=== PATIENT | male | born 1990 | race Caucasian/White ===

== ENCOUNTER → 2020-08-20 12:23 | Outpatient (CLI) | payer OTHER, SELFPAY ==
--- NOTE | ~2020-08-20 | MR_ITS ---
EXAMINATION: MR lumbar spine wo [id number] EXAM DATE: 08/20/2020 13:40 INDICATION: Low back pain. TECHNIQUE: Multi-sequential, multiplanar MR images of the lumbar spine were obtained without contrast . Sagittal T1, T2, T2 fat saturation images. Axial T2 weighted images. There is no prior study for comparison. FINDINGS: Rudimentary L5-S1 disc. Mild disc disease L4-5 and L5-S1. The vertebral body and disc heigh ts are otherwise well maintained. The vertebral bodies are aligned in the AP dimension. The conus med ullaris terminates at the L1/2 level and has normal signal intensity and morphology. There are no stephens spicious marrow signal abnormalities. Paraspinal soft tissue is unremarkable. Level by level evaluation: T12-L1: Disc does not extend beyond the endplate margin. Facet arthropathy: None. Neural foraminal stenosis: No stenosis. Central canal stenosis: No stenosis. L1-L2: Disc does not extend beyond the endplate margin. Facet arthropathy: Mild. Neural foraminal stenosis: No stenosis. Central canal stenosis: No stenosis. L2-L3: Disc does not extend beyond the endplate margin. Facet arthropathy: Mild. Neural foraminal stenosis: No stenosis. Central canal stenosis: No stenosis. L3-L4: There is a minimal diffuse disc bulge. Facet arthropathy: None. Neural foraminal stenosis: No stenosis. Central canal stenosis: No stenosis. L4-L5: There is a mild diffuse disc bulge. Facet arthropathy: Mild. Neural foraminal stenosis: Mild bilateral, left greater than right. Central canal stenosis: Mild. L5-S1: There is a mild diffuse disc bulge. Facet arthropathy: Mild. Neural foraminal stenosis: No stenosis. Central canal stenosis: No stenosis. IMPRESSION: 1. Mild lower lumbar spondylosis. 2. No acute findings. Reviewed, dictated and finalized at location A. E REPORT DEVELOPER
--- NOTE | ~2020-08-20 | MR_ITS ---
EXAMINATION: MR cervical spine wo con EXAM DATE: 08/20/2020 13:40 INDICATION: Neck pain . TECHNIQUE: Multi-sequential, multiplanar MR images of the cervical spine were obtained without contra st. Axial T2, axial T2 MERGE sequence. Sagittal T1, T2, T2 fat saturation images also obtained. Th ere are no prior studies for comparison. FINDINGS: The vertebral bodies are aligned in the AP dimension. Vertebral body and disc heights are well-maintained. There are no suspicious marrow signal abnormalities. The spinal cord signal intensit y and intrinsic morphology is normal. Cervicomedullary junction is normal in appearance. Paraspinal soft tissue is unremarkable. Level by level evaluation: C2-C3: Disc does not extend beyond the endplate margin. Uncovertebral joint arthropathy: None. Facet joint arthropathy: None. Neural foraminal stenosis: No stenosis. Central canal stenosis: No stenosis. C3-C4: Disc does not extend beyond the endplate margin. Uncovertebral joint arthropathy: None. Facet joint arthropathy: None. Neural foraminal stenosis: No stenosis. Central canal stenosis: No stenosis. C4-C5: Disc does not extend beyond the endplate margin. Uncovertebral joint arthropathy: Minimal bilateral. Facet joint arthropathy: Mild left. Neural foraminal stenosis: No stenosis. Central canal stenosis: No stenosis. C5-C6: Disc does not extend beyond the endplate margin. Uncovertebral joint arthropathy: Mild bilateral. Facet joint arthropathy: None. Neural foraminal stenosis: No stenosis. Central canal stenosis: No stenosis. C6-C7: Disc does not extend beyond the endplate margin. Uncovertebral joint arthropathy: Mild right. Facet joint arthropathy: None. Neural foraminal stenosis: No stenosis. Central canal stenosis: No stenosis. C7-T1: Disc does not extend beyond the endplate margin. Uncovertebral joint arthropathy: None. Facet joint arthropathy: None. Neural foraminal stenosis: No stenosis. Central canal stenosis: No stenosis. IMPRESSION: 1. Mild arthropathy. No stenosis. 2. No acute findings. Reviewed, dictated and finalized at location A. ER MAKER
== END ==
PROVIDERS: PCP Family Medicine; Visit Provider Family Medicine
DX: M54.2 Cervicalgia (principal); M47.26 Other spondylosis with radiculopathy, lumbar region
CPT/HCPCS: 72141; 72148

== ENCOUNTER 2021-06-21 08:33 | Emergency (ER) | payer OTHER, SELFPAY ==
[2021-06-21 08:44] VITALS: BP 150/88; PULSE 110; RESP 18; TEMP 36.5; O2SAT 98
[2021-06-21 08:51] VITALS: BP 158/104; PULSE 80; RESP 18; O2SAT 100
[2021-06-21] MEDS: KETOROLAC (*BKC) 60 MG/2 ML VIAL IM (09:23)
--- NOTE | 2021-06-21 09:25 | ED.BACK ---
HPI - Back Pain/Injury General Chief Complaint: Back Pain/Injury Stated Complaint: Lower back pain. Time Seen by Provider: 06/21/21 08:48 Source: patient and RN notes reviewed Mode of arrival: ambulatory Limitations: no limitations History of Present Illness HPI Narrative: This is a 30 year old male with history of chronic low back pain who presents for evaluation of left lower back pain. Patient states he was performing squats on mcclendon machine when he developed sudden onset pain. Patient was trying to stand up from his squats when pain started. He states his pain does not radiate to his legs or abdomen. His pain is worse with movement. He has not take anything for his pain since it started prior to arrival. He also denies leg weakness, numbness or tingling. He abdominal pain, nausea or vomiting. He denies urinary dysuria , retention or incontinence. He states this pain is similar to his chronic pain but it may be slightly worse today. He has had multiple MRIs and his last one was 6 months ago. He has been diagnosed with bulging disc. Related Data Allergies Allergy/AdvReac Type Severity Reaction Status Date / Time No Known Allergies Allergy Verified 06/21/21 08:51 Review of Systems Review of Systems: All systems reviewed & are unremarkable except as noted in HPI and below PMFSH Past Medical History Medical History (Updated 06/21/21 @ 10:31 by Anamika Mayers MD) Bulging disc Surgical History Surgical History (Updated 06/21/21 @ 09:29 by Anamika Mayers MD) No pertinent past surgical history Social History Social History (Updated 06/21/21 @ 09:29 by Anamika Mayers MD) Smoking status: Never smoker Exam Const: General: no acute distress and alert Orientation/consciousness: patient oriented x3 Eyes: EOM: EOMs intact bilaterally Resp: Effort & Inspection: normal respiratory effort and no retractions Auscultation: clear to auscultation bilaterally Cardio: Rate: regular rate Rhythm: regular rhythm Heart sounds: no murmurs GI: GI Palp: Yes Soft to palpation, No Tenderness to palpation present (GI) and No Guarding due to palpation present (GI) Auscultation: normal bowel sounds Back/Spine/Pelvis: Back: no CVA tenderness Thoracic/Lumbar Spine: pain with thoraco-lumbar ROM Skin: General skin exam: normal color Rashes: no rashes Neuro: General: patient oriented x3, moves all extremities and CN's II-XI intact bilaterally Course Reevaluation(s) Reevaluation #1: Patient is sitting up in bed. He still has some pain but he states he has been dealing with this for 10 years so he understands it will get better over time. He denies any other questions or concerns. Declines need for work note. Date: 06/21/21 Time: 10:29 Vital Signs Vital signs: Vital Signs Temperature 97.7 F 06/21/21 08:44 Pulse Rate 110 H 06/21/21 08:44 Respiratory Rate 18 06/21/21 08:44 Blood Pressure 150/88 H 06/21/21 08:44 Pulse Oximetry 98 06/21/21 08:44 Temperature 97.7 F 06/21/21 08:44 Pulse Rate 84 06/21/21 10:45 Respiratory Rate 16 06/21/21 10:45 Blood Pressure 136/79 06/21/21 10:45 Pulse Oximetry 98 06/21/21 10:45 MDM - Back Pain/Injury Differential Diagnosis Differential diagnosis: Likely lumbar radiculopathy, sciatica and strain of lumbar region Discharge Plan Discharge Clinical Impression: Strain of lumbar region Qualifiers: Encounter type: initial encounter Qualified Code(s): S39.012A - Strain of muscle, fascia and tendon of lower back, initial encounter Acute low back pain Qualifiers: Back pain laterality: left Sciatica presence: without sciatica Qualified Code(s): M54.50 - Low back pain, unspecified Patient Disposition: Home, Self-Care Condition: Stable Instructions: Antibiotic Form, Acute Low Back Pain (ED), Back Pain (ED) Additional Instructions: Follow up with your primary care provider for evaluation of your pain. Prescriptions: New nap
[2021-06-21] MEDS: diazePAM (*CRX) 5 MG TABLET PO (09:27)
[2021-06-21 10:45] VITALS: BP 136/79; PULSE 84; RESP 16; O2SAT 98
== END 2021-06-21 10:55 | disposition home or self-care (01) ==
PROVIDERS: Emergency Provider General Practice; PCP Family Medicine
DX: S39.012A Strain of muscle, fascia and tendon of lower back, initial encounter (principal); M54.50 Low back pain, unspecified; G89.29 Other chronic pain; X50.3XXA Overexertion from repetitive movements, initial encounter; Y93.B9 Activity, other involving muscle strengthening exercises
CPT/HCPCS: 96372; 99283; A9270; J1885

== ENCOUNTER 2021-06-22 07:29 | Emergency (ER) | payer OTHER, SELFPAY ==
[2021-06-22 07:31] VITALS: BP 136/93; PULSE 93; RESP 18; TEMP 36.2; O2SAT 100
--- NOTE | 2021-06-22 08:49 | PC.NURSE ---
Pt amb to intake, I think i am going to leave . Pt ambulatory out of ed.
== END 2021-06-23 04:19 | disposition left against medical advice (07) ==
PROVIDERS: PCP Family Medicine
DX: M54.50 Low back pain, unspecified (principal)
CPT/HCPCS: 99199

== ENCOUNTER 2022-05-04 07:58 | Emergency (ER) | payer OTHER, SELFPAY ==
--- NOTE | 2022-05-04 08:01 | ED.ABDPAIN ---
HPI - Abdominal Pain General Chief Complaint: Unspecified Stated Complaint: Rectal Pain Time Seen by Provider: 05/04/22 08:01 Source: patient Mode of arrival: ambulatory Limitations: no limitations History of Present Illness HPI narrative: Patient is a 31-year-old male presenting to the emergency department for evaluation of rectal pain. Patient has a history of hemorrhoid in the past, states that he believes he has an external hemorrhoid that is causing him pain. He denies any rectal bleeding. He does report straining with a bowel movement yesterday and then noticed a bulge near his rectum that was mildly tender. Patient reports he has had pain throughout the night, with difficulty sleeping. Patient does not take any fiber. He has not tried any wusx-hyd-snearto medications. Patient states in the past he has used suppositories and medications from a physician with improvement in his symptoms. He denies history of excision. Related Data Allergies Allergy/AdvReac Type Severity Reaction Status Date / Time No Known Allergies Allergy Verified 06/22/21 07:35 Review of Systems Review of Systems: CONSTITUTIONAL: Denies fever CARDIOVASCULAR: Denies chest pain RESPIRATORY: Denies cough or dyspnea. GASTROINTESTINAL: Denies abdominal pain, reports small bulge at rectum with tenderness SKIN: Denies rash MUSCULOSKELETAL: Denies back pain NEUROLOGIC: Denies headache PMFSH Past Medical History Medical History Bulging disc Surgical History Surgical History No pertinent past surgical history Social History Social History Smoking status: Never smoker Exam Narrative: GENERAL: Awake, alert, conversant HEAD: Normocephalic, atraumatic. EYES: PERRLA and EOMI. ENT: Nares clear, no rhinorrhea or epistaxis. Mucous membranes moist. NECK: Supple. CHEST: No respiratory distress, breathing even and non labored HEART: Regular rate, sinus rhythm ABDOMEN:Non distended, non tender : Rectum with normal tone. Patient with small external hemorrhoid, less than 1 cm, it is not ecchymotic, no erythema or induration. It is mildly tender. It is not firm. There is no fissure. There is no evidence of bleeding or melanotic stool. EXTREMITIES: Normal range of motion. No edema. SKIN: Warm, dry, no rash. NEURO:No focal deficits. Alert and oriented x3 Course Vital Signs Vital signs: Vital Signs Temperature 36.6 C 05/04/22 08:04 Pulse Rate 67 05/04/22 08:04 Respiratory Rate 18 05/04/22 08:04 Blood Pressure 139/80 05/04/22 08:04 Pulse Oximetry 99 05/04/22 08:04 Oxygen Delivery Room Air 05/04/22 08:04 Temperature 36.6 C 05/04/22 08:04 Pulse Rate 67 05/04/22 08:04 Respiratory Rate 18 05/04/22 08:04 Blood Pressure 139/80 05/04/22 08:04 Pulse Oximetry 99 05/04/22 08:04 Oxygen Delivery Room Air 05/04/22 08:04 MDM - Abdominal Pain MDM Narrative Medical decision making narrative: Patient presenting for evaluation of rectal pain, found to have a small external hemorrhoid on exam. Differential includes rectal abscess, thrombosed hemorrhoid, inflamed hemorrhoid, nonthrombosed hemorrhoid, HPV papule. Patient without vesicles, lesions or risk factors for sexually transmitted infection. Does not seem consistent with STI or genital warts. It is mildly tender but not ecchymotic, not firm, and I am not convinced that this is a thrombosed hemorrhoid. It is not consistent with abscess, there is no induration or erythema. At this point, typical emergency department medication for this is conservative management especially since the patient has had success with that in the past. I do not feel that this is warranted for emergent hemorrhoidectomy or elliptical incision. We will trial patient on hydrocortisone as well as sitz bath's, fiber daily and refer
[2022-05-04 08:04] VITALS: BP 139/80; PULSE 67; RESP 18; TEMP 36.6; O2SAT 99
[2022-05-04] MEDS: HYDROCORTISONE/PRAMOX 1% FOAM 10 GM CAN 1 APPLIC RECTAL (08:28)
== END 2022-05-04 08:44 | disposition home or self-care (01) ==
PROVIDERS: Emergency Provider Emergency Medicine
DX: K64.4 Residual hemorrhoidal skin tags (principal)
CPT/HCPCS: 99283; A9270

== ENCOUNTER 2022-05-11 02:01 | Day surgery (SDC) | payer OTHER, SELFPAY ==
[2022-05-09 14:23] VITALS: BMI 25.7
--- NOTE | 2022-05-09 14:26 | PC.NURSE ---
Report to the Outpatient Waiting Room, entrance under the green pavilion located off [facility], at time 1100 on date 05/11/22. Planned Procedure Time: 1300. Time changes happen often and if your time is changed the preop area will call you the afternoon before. - You and your visitor will be asked to self-screen and do not enter if you have any COVID symptoms. - We encourage only one visitor and NO visitors under age 16 are allowed at this time. Your visitor will receive communication by the phone number that is given day of service. - The patient visitor is requested to social distance or may leave the building when not with patient due to restrictions. - A mask is OPTIONAL within the hospital. Patients may have clear liquids (water, carbonated beverages, clear teas, apple juice) until 3 hours prior to surgery with a maximum of 20 ounces. - No food from midnight until time of surgery Take the following medications with a SIP of water the morning of surgery: N/A Medications to discontinue per physician: N/A Date to take last dose: N/A Please no make-up, nail frisian, hairspray, perfume, deodorant, or body powder the day of surgery. No jewelry (including any body piercings) or valuables the day of surgery, leave them at home. Please take a shower or bath the night before, or the morning of, surgery with an antibacterial soap. Wear comfortable, loose fitting clothing. - Jewelry must be removed prior to entering the operating room. Rings and piercings that are not removed may be cut off. - The hospital will not accept responsibility for valuables. - Please leave all valuables, including medications, at home the day of surgery. If you are going home after surgery, a licensed haul truck driver must drive you home. - NO public transportation without another adult. - We recommend that an adult stay with you for 24 hours following discharge. - We also recommend that you do not drive, make important decision, drink alcoholic beverages, or take any drugs that were not prescribed by your health care provider for at least 24 hours after your discharge time. Follow any additional instructions given to you from your surgeon. If you or anyone in your household have experienced Covid symptoms in the past week, please notify your surgeon or the nurse liaison at the phone number below for possible testing. Telephone instructions given to PT - ROULA IBRAHIM and asked if any additional questions and then verbalized understanding. Patient advised to call surgeon office or pre surgery nurse liaison [phone] if any additional questions.
[2022-05-11] MEDS: ACETAMINOPHEN 500 MG TABLET 1000 MG PO (11:06)
[2022-05-11] MEDS: LACTATED RINGERS 1,000 ML 30 ML IV CONT (11:27)
[2022-05-11] MEDS: KETOROLAC 15 MG/ML VIAL (*BKC) IV PUSH (11:29)
[2022-05-11 11:30] VITALS: BP 117/67; PULSE 67; RESP 16; TEMP 36.8; O2SAT 98
--- NOTE | 2022-05-11 11:36 | WPDHPUPDATE1 ---
History and Physical Update Update Date/Time: 05/11/22 11:36 History and Physical has been reviewed, including an updated exam of the patient. There are NO changes in the patient's condition. Risks, benefits, and alternatives have been discussed and questions answered. Patient agrees to proceed with procedure.
--- NOTE | 2022-05-11 12:26 | WPDANESEPPF ---
Anes - Initial Pre Proc Eval Procedure: Operation Date: 05/11/22 13:00 Proposed Procedures p Rectal Examination Under Anesthesia, Hemorrhoidectomy - Loyda Mccloud MD Date/Time: 05/11/22 12:26 Surgeon: Loyda Mccloud MD Pre Op Diagnosis: Thrombosed External Hemorrhoid Patient Data Age: 31 Gender: M Height: 1.88 m Weight: 92.4 kg Last Vital Signs Temp 36.8 C 05/11/22 11:30 Pulse 67 05/11/22 11:30 Resp 16 05/11/22 11:30 BP 117/67 05/11/22 11:30 Pulse Ox 98 05/11/22 11:30 O2 Del Method Room Air 05/11/22 11:30 Allergies Allergy/AdvReac Type Severity Reaction Status Date / Time No Known Allergies Allergy Verified 05/11/22 11:01 Home Medications Medication Instructions Recorded Confirmed Type No Home Medications 05/09/22 05/11/22 History Patient hx anesthesia problems: none Family hx anesthesia problems: none Results Review: All pre-operative results and documents have been reviewed as part of the pre-operative evaluation. [facility] Past Medical History Medical History Bulging disc Surgical History Surgical History No pertinent past surgical history Social History Social History Smoking status: Never smoker Alcohol intake: current Alcohol use details: VERY RARE Substance use: never Substance use type: does not use Living arrangements: with family Spiritual care concerns: No Anes - Eval Final PreProcedure Day of Procedure 05/11/22 12:26 Patient weight: overweight Heart: regular rate and rhythm Lungs: clear to auscultation Airway: Mallampati scale class II Neurological: alert and oriented Last oral intake: >/= 8 hours ASA classification: II Emergent: no Anesthetic plan: proceed Anesthesia type and monitoring: general GIVS and standard monitoring Results Review: All pre-operative results and documents have been reviewed as part of the pre-operative evaluation. Informed Consent: The patient's anesthetic plan and its attendant risks and benefits were discussed with the patient/family/POA. Questions were solicited and answers provided to the satisfaction of the patient/family/POA.
[2022-05-11] MEDS: ceFAZolin 2 GM/D5W 50 ML 2 GM/50 ML BAG IVPB (13:22)
[2022-05-11] MEDS: LIDOCAINE HCL 1% PF 30 ML VIAL 20 ML INFILTRATE (13:26)
[2022-05-11] MEDS: HEMOSTATIC MATRIX (SURGIFLO with THROMBIN) KIT 1 KIT XX (13:29)
--- NOTE | 2022-05-11 13:35 | W.PM.PROC2 ---
Procedure Note - Detailed Date of Procedure 05/11/22 Pre-op Diagnosis Thrombosed External Hemorrhoid Post-op Diagnosis Same Procedure Performed Exam under anesthesia, external hemorrhoidectomy involving left lateral position Surgeon Loyda Mccloud MD Anesthesia General Indications 31 y/o M presented to office c painful, thrombosed external hemorrhoid Findings thrombosed external hemorrhoid L lateral position Description of Procedure The patient was taken to the operating room and placed in the modified lithotomy position. After adequate induction of general anesthesia, the patient was prepped and draped in the normal sterile fashion. A time-out was then done to verify the patient's identity, as well as the procedure being performed. I began by doing a digital exam. There was noted to be a thrombosed external hemorrhoid, however no internal hemorrhoids were noted. At this point, a bilateral pudendal block was done. Then used the lone Star retractor to further evaluate the anal canal as well as rectum, other than the thrombosed external hemorrhoid no other pathology was noted. I then began excising the external hemorrhoid using the hand-held LigaSure device. The hemorrhoid was noted to be in the left lateral position. The specimen will beent to pathology for further review. Hemostasis was noted at the excision site. I then placed a piece of Gelfoam covered with lidocaine jelly into the rectal vault. The patient tolerated the procedure and was extubated in the operating room postop. He will be transferred to the recovery room in stable condition. Implants Gelfoam covered with lidocaine jelly in the rectal vault Estimated Blood Loss 5 Drains No Packing Yes Pathology Yes Complications No immediate complications Condition Stable Disposition PACU [facility] Billing Surgery - Charge Forward: Surgery Billing
[2022-05-11 13:42] VITALS: BP 105/60; PULSE 59; RESP 10; O2SAT 97
[2022-05-11 14:10] VITALS: BP 116/73; PULSE 72; RESP 16
[2022-05-11 14:41] VITALS: BP 123/71; PULSE 77; RESP 16
== END 2022-05-11 14:50 | disposition home or self-care (01) ==
PROVIDERS: Visit Provider Surgery
PROC: (CPT 46320; principal; 2022-05-11 13:00)
DX: K64.5 Perianal venous thrombosis (principal)
CPT/HCPCS: 46320; 88304; A9270; J0690; J1100; J1885; J2250; J2405; J2704; J3010; J7120

== ENCOUNTER 2024-02-18 13:40 | Outpatient (CLI) | payer OTHER, SELFPAY ==
--- NOTE | ~2024-02-18 | XR_ITS ---
EXAMINATION: XR chest 2V Exam Date/Time: 02/18/2024 13:43 CDT HISTORY: wheezing for 5-6 months no other symptoms Comparison: None. RESULT: Lines, tubes, and devices: None. Lungs and pleura: Subtle segmental area of reticulonodular opacities in the right upper lung. Cardiomediastinal silhouette: Stable. Other: No acute osseous or upper abdominal finding. IMPRESSION: Right upper lung opacities as can be seen with atypical infection (MAC, TB, fungal), ABPA, airways di sease (CF, bronchiectasis), and aspiration. Reviewed, dictated and finalized at location K. IMPRESSION: Right upper lung opacities as can be seen with atypical infection (MAC, TB, fun gal), ABPA, airways disease (CF, bronchiectasis), and aspiration.
== END 2024-02-18 13:41 ==
PROVIDERS: PCP Nurse Practitioner; Visit Provider Nurse Practitioner
DX: R05.1 Acute cough (principal); R06.2 Wheezing; R91.8 Other nonspecific abnormal finding of lung field
CPT/HCPCS: 71046

== ENCOUNTER 2025-04-16 07:02 | Outpatient (CLI) | payer OTHER, SELFPAY ==
--- NOTE | ~2025-04-16 | XR_ITS ---
EXAMINATION: XR chest 2V, 04/16/2025 7:11 CDT HISTORY: Cough COMPARISON: No comparisons available. Technique: 2 views obtained. Findings: The lungs are clear, no effusion. No pneumothorax. Heart is normal size. The left hilum appears enlarged, remaining cardiac silhouette unremarkable. Bony thorax no acute abnormality. Impression: Enlarged left hilum which may be vascular but incompletely evaluated. CT suggested to further evaluate Reviewed, dictated and finalized at location P. Impression: Enlarged left hilum which may be vascular but incompletely evaluated. CT sugges tripp to further evaluate
== END 2025-04-16 07:03 | disposition home or self-care (01) ==
PROVIDERS: PCP Nurse Practitioner
DX: R05.9 Cough, unspecified (principal); D86.9 Sarcoidosis, unspecified; R91.8 Other nonspecific abnormal finding of lung field
CPT/HCPCS: 71046